=== PATIENT | male | born 1945 | race Caucasian/White ===

== ENCOUNTER 2021-09-15 18:36 | Observation (INO) | payer OTHER, MEDICARE, SELFPAY ==
[2021-09-15] VITALS (14 sets, daily range): BP systolic 167–200; BP diastolic 96–120; PULSE 87–103; RESP 16–22; TEMP 36.2–37.1; O2SAT 94–97; BMI 25.8; BMI 26.6
--- NOTE | 2021-09-15 18:47 | EKG12_ITS ---
Test Reason : HTN Blood Pressure : / mmHG Vent. Rate : 087 BPM Atrial Rate : 087 BPM P-R Int : 174 ms QRS Dur : 108 ms QT Int : 378 ms P-R-T Axes : 026 -37 015 degrees QTc Int : 454 ms Normal sinus rhythm Left axis deviation Abnormal ECG Confirmed by DAVEY CASTILLO, ROMIE ([id number]), acquisitions editor WILBER VALLADARES ([id number]) on 09/16/2021 2:29:33 PM Referred By: DANTE Confirmed By:ROMIE MARISCAL MD
--- NOTE | 2021-09-15 18:49 | EDS_ITS ---
HPI History of Present Illness Chief Complaint: Hypertension Detail of Chief Complaint: Problems with balance and coordination that started 1 hour prior to present Informant: patient and spouse/S.O. Onset/Context/Timing Onset: Hours (1 hour prior to presentation) Context: Sudden Onset Timing: Continuous Current Severity: Mild Maximum Severity: Mild Worsened by: Nothing Relieved by: Nothing Associated Symptoms Associated Symptoms: Problems with balance and fine coordination Narrative Narrative: Patient is a 76-year-old male who is a non-smoker but admits to 3 drinks a day. He has had intermittent headache over the past 3 days. He has had elevated blood pressure at home. reports blood pressure was 272/142. He presently does not have a headache. He denies double vision, blurred vision or loss of vision. He denies ringing his ears decreased hearing. He denies nausea or vomiting. Nuys trouble with speech or swallowing. He denies paresthesia, anesthesia or motor weakness. He does endorse problems with balance. Prior similar symptoms: No Recent Illness/Hospitalization: No PFSH PFSH Medical History (Updated 09/15/21 @ 19:[address] Perry Colindres MD) Diverticulitis Medical History no medical history no medical history Home Medications NK 09/15/21 [History Last Taken Unknown] Allergy/AdvReac Type Severity Reaction Status Date / Time No Known Allergies Allergy Verified 09/15/21 18:37 Social History (Updated 09/15/21 @ 18:[address] Perry Colindres MD) household members: spouse Smoking Status: Never smoker alcohol intake: current alcohol intake frequency: 3 or more drinks per day substance use type: does not use ROS ROS ED Constitutional Constitutional ED: Denies chills, fever(s), subjective, sweats or weight loss Eyes Eyes: Denies blurry vision, change in vision or diplopia ENT ENT ED: Denies ear pain, rhinorrhea or sore throat Cardiovascular Cardiovascular: Denies chest pain, orthopnea, palpitations or racing heartbeat Respiratory/Chest Respiratory/Chest: Denies cough, dyspnea, dyspnea on exertion, orthopnea or sputum Gastrointestinal Gastrointestinal: Denies abdominal pain, diarrhea, melena, nausea or vomiting Genitourinary Genitourinary ED: Denies dysuria, hematuria or urinary frequency Musculoskeletal Musculoskeletal: Denies arthralgias, back pain, myalgias or neck pain Integumentary Denies abscess, Abrasions or rash Neurologic Neurologic: Reports headache(s); Denies paresthesias or weakness Endocrine Endocrinology: Denies polydipsia, polyphagia or polyuria Hematologic/Lymphatic Hematologic/Lymphatic: Denies easy bleeding or easy bruising EXAM Physical Exam Const Vital Signs: 09/15/21 18:38 09/15/21 19:01 09/15/21 19:03 Temperature 97.2 F L Temperature Source Temporal Pulse Rate 103 H Respiratory Rate 16 Respiratory Effort Normal Respiratory Pattern Normal Blood Pressure 192/112 H Blood Pressure Mean 138 Pulse Ox 97 95 Oxygen Delivery Method Room Air Nasal Cannula 09/15/21 19:04 09/15/21 19:06 09/15/21 19:09 Temperature Temperature Source Pulse Rate 92 95 97 Respiratory Rate 20 H 20 H 20 H Respiratory Effort Respiratory Pattern Blood Pressure 183/100 H 200/114 H 200/114 H Blood Pressure Mean 127 142 142 Pulse Ox 95 97 97 Oxygen Delivery Method Room Air Room Air Room Air 09/15/21 19:14 09/15/21 19:21 09/15/21 19:22 Temperature Temperature Source Pulse Rate 92 89 89 Respiratory Rate 20 H 20 H 18 Respiratory Effort Respiratory Pattern Blood Pressure 193/96 H 167/99 H 189/105 H Blood Pressure Mean 128 121 133 Pulse Ox 95 96 96 Oxygen Delivery Method Room Air Room Air Room Air 09/15/21 19:30 Temperature 97.8 F Temperature Source Temporal Pulse Rate 88 Respiratory Rate 22 H Respiratory Effort Respiratory Pattern Blood Pressure 178/103 H Blood Pressure Mean 128 Pulse Ox 94 Oxygen Delivery Method Room Air Positive well nourished and well developed General Appearance ED: well developed and NAD; Negative for cyanotic, diaphoretic or pallor HEENT Reports TM's clear and moist mucous membranes HEENT Narrative: Uvula is midline. There is no angioedema. Ears are normal. Negative for trauma or tenderness Tympanic Membrane ED: Yes TM's clear Eyes PERRL and EOMs intact bilaterally Eyes Narrative: There is slight nystagmus with lateral gaze to the left. There is no APD. There is no evidence of papilledema. Difficult to assess cup-to-disc ratio. Patient does have evidence of AV nicking. General Eye ED: Negative for pale conjunctiva or scleral icterus Neck no lymphadenopathy, supple and no JVD Neck Narrative: There is no carotid bruit noted on the right or left side. Resp normal respiratory effort and clear to auscultation bilaterally Cardio regular rate, regular rhythm, S1 normal heart sound, S2 normal heart sound and no murmurs GI normal to inspection, nondistended, normoactive bowel sounds, non-tender and non-distended Palpation: soft Back/Spine no CVA tenderness Cervical Spine: Negative for cervical spine tenderness Thoracic Spine / Upper Back: Negative for thoracic spinal tenderness or paraspinal muscle tenderness Extremity normal to inspection General Extremety ED: Negative for edema or tenderness General Extremity: Negative for edema Neuro oriented x3, CN's II-XII intact bilaterally and no sensory deficits noted Neuro Narrative: There is no dysmetria. Romberg with eyes open and closes abnormal when they are close bilaterally. Gait observed and is broad-based. Tandem gait is abnormal with clumsiness and difficulty standing and needing assistance to prevent falling.There is no clonus or Babinski sign. NIH is 0. The eye askew test was negative. The hint test was negative. Sensorium / Orientation: alert Motor Exam: strength 5/5 throughout Psych mental status grossly normal Skin no rashes or lesions noted and no wounds General Skin Exam: Negative for jaundice or pallor MDM MDM MDM Narrative Medical decision making narrative: With broad-based gait difficulty with coordination and balance concern patient has sella barrel infarct. This may also represent hypertensive emergency in light of patient's reported blood pressure at home. Based on funduscopic exam patient's had untreated hypertension for some time. Stroke team was called. Patient has no positional findings. Need to evaluate for posterior stroke versus hypertensive emergency. With him having nystagmus 1 need to entertain possibility of hemorrhagic stroke as well. Dr. Kearns was the neurologist at [facility]. Spoke to him prior to his evaluation and raise concerns of high blood pressure versus possible posterior stroke. With NIH of 0 and pressure still elevated the risk benefit of TPA versus no TPA is greater if TPA is administered therefore recommendation is not to administer TPA. Patient and were in the room when we had this discussion and he understands. Goal is systolic blood pressure 1 70-1 80 and diastolic of 100 205. If CTA reveals no significant stenosis or thrombus plan is admit an MRI in the morning otherwise transfer to tertiary facility. I received a call from the radiologist regarding the CT angio and he informed there is no abnormality. Therefore hospitalist was paged for admission Lab Data Attestation: I reviewed the patient's lab results. Lab results narrative: CBC is unremarkable. Blood sugar is slightly elevated 110. Coags are normal. Labs: Laboratory Results - last 24 hr 09/15/21 09/15/21 09/15/21 18:50 18:50 18:50 WBC 6.2 RBC 4.73 Hgb 16.3 Hct 45.8 MCV 96.8 H MCH 34.5 H MCHC 35.6 RDW Std Deviation 42.5 RDW Coeff of Jose 11.9 Plt Count 205 MPV 10.0 Immature Gran % (Auto) 0.600 Neut % (Auto) 45.5 L Lymph % (Auto) 39.1 Drew % (Auto) 12.2 H Eos % (Auto) 2.1 Baso % (Auto) 0.5 Absolute Neuts (auto) 2.8 Absolute Lymphs (auto) 2.43 Nucleated RBC % 0 PT 13.0 INR 1.0 APTT 31.7 Sodium 138 Potassium 3.7 Chloride 104 Carbon Dioxide 27.0 Anion Gap 7 BUN 8 Creatinine 0.83 Estim Creat Clear Calc 80.62 Est GFR (MDRD) Af Amer 116 Est GFR (MDRD) Non-Af 96 BUN/Creatinine Ratio 9.6 L Glucose 106 Calcium 8.8 Troponin I High Sens 8 POC Glucose 09/15/21 19:04 WBC RBC Hgb Hct MCV MCH MCHC RDW Std Deviation RDW Coeff of Jose Plt Count MPV Immature Gran % (Auto) Neut % (Auto) Lymph % (Auto) Drew % (Auto) Eos % (Auto) Baso % (Auto) Absolute Neuts (auto) Absolute Lymphs (auto) Nucleated RBC % PT INR APTT Sodium Potassium Chloride Carbon Dioxide Anion Gap BUN Creatinine Estim Creat Clear Calc Est GFR (MDRD) Af Amer Est GFR (MDRD) Non-Af BUN/Creatinine Ratio Glucose Calcium Troponin I High Sens POC Glucose 110 H Radiography Diagnostic Testing: Clinical Impression(s) from Imaging Studies Brain CT 09/15/21 19:00 IMPRESSION: No acute intracranial abnormality. Chronic involutional and ischemic changes of the brain. Electronically Signed: Brian Stanton MD at 19:09 EST , ADDENDUM: 09/15/21 1917 IMPRESSION: No acute intracranial abnormality. Chronic involutional and ischemic changes of the brain. N.B. : The above Results were Read Back by Brian Stanton MD to Dr. Perry Colindres MD, and understanding confirmed on 09/15/2021 19:11:05 (ET). Electronically Signed: Brian Stanton MD at 19:09 EST , Head/Neck CTA 09/15/21 19:00 IMPRESSION: Normal CTA Head and neck with contrast. Electronically Signed: Gina Hunt MD at 19:21 EST Reading Location ID and State: [id number] / Tel , Service support , ADDENDUM: 09/15/21 193 IMPRESSION: Normal CTA Head and neck with contrast. N.B. : The above Results were Read Back by Gina Hunt MD to Dr. Perry Colindres MD, and understanding confirmed on 09/15/2021 19:26:13 (ET). Electronically Signed: Gina Hunt MD at 19:21 EST Reading Location ID and State: [id number] / Tel , Service support , Critical Care Time Critical Care Time: Yes Critical care time (excluding procedures): 30-74 minutes (31), Including time spent: (History, physical, documentation, discussion with family, stroke protoc ol and discussion with neurologist at [facility]), Discussing w/Patient &/or Family/Project Management It Specialist (Discussion with family regarding risk benefits of TPA versus no TPA.), Discussing w/Consultants (Per discussion with neurologist TPA was held since the risk of TPA is greater than the benefit. Patient understands this. Spoke with radiologist who read the unenhanced scan and a different radiologist who read the CTA of the head neck and both reported no abnormality. The first radiologist who r) and Arranging Admission or Transfer Discharge Plan Dx/Rx/DC Orders Clinical Impression: Abnormality of gait due to impairment of balance, Accelerated hypertension Disposition Disposition: Acute Care Hospital [facility]
--- NOTE | 2021-09-15 19:00 | CT_ITS ---
We are attempting to reach an attending provider to discuss findings. An addendum with communication details will be sent when the communication is complete. EXAMINATION : Head CT w/out contrast HISTORY : Neuro deficit, acute, stroke suspected COMPARISON : None. TECHNIQUE : Multiple contiguous axial images were obtained from the skull base to the vertex without intravenous contrast. A radiation dose optimization technique was used for this scan. FINDINGS : There is no evidence for acute intracranial hemorrhage, mass effect, or midline shift. There is no extra-axial fluid collection. There are periventricular white matter changes consistent with chronic microvascular ischemic disease. There is sulcal widening and ventricular enlargement consistent with cerebral atrophy. There is normal landry-white differentiation, without CT evidence of acute ischemia or infarct. The skull base and calvarium are unremarkable. The orbits are unremarkable. The paranasal sinuses are clear. The mastoid air cells are well-aerated. The soft tissues are unremarkable. CT/STROKE Brain/Head without Cont IMPRESSION: No acute intracranial abnormality. Chronic involutional and ischemic changes of the brain. Electronically Signed: Brian Stanton MD at 19:09 EST ,
--- NOTE | 2021-09-15 19:00 | CT_ITS ---
We are attempting to reach an attending provider to discuss findings. An addendum with communication details will be sent when the communication is complete. STUDY: CTA HEAD AND NECK WITH CONTRAST REASON FOR EXAM: Male, 76 years old. Neuro deficit, acute, stroke suspected RADIATION DOSAGE (If Supplied By Facility): CTDIvol = ( 19.87 ) mGy, DLP = ( 722.26 ) mGycm TECHNIQUE: CT angiography was performed with a multi-detector CT scanner. Data acquisition was obtained from the skull base through the vertex following intravenous administration of IV 100mL [id number]-[id number]. MIP images were reconstructed from the axial data set. Post-processing of the angiographic images was performed, with multiplanar reformation and 3D reconstruction. Individualized dose optimization techniques were used for this CT. COMPARISON: No relevant priors. FINDINGS: Normal bilateral petrous and cavernous carotid arteries. Normal anterior cerebral arteries. Hypoplastic or aplastic anterior communicating artery. Normal middle cerebral arteries. Normal M1 bifurcations. There is non-visualization of the right posterior communicating artery (PCOM). There is non-visualization of the left posterior communicating artery (PCOM). Normal bilateral vertebral arteries. Normal basilar artery with a normal basilar bifurcation. The visualized bilateral superior cerebellar (SCA) arteries are normal. Normal bilateral P1, P2 and visualized P3 segments of the posterior cerebral arteries. There is no demonstrated aneurysm of the [place] of [place]. AORTIC ARCH: Normal visualized aortic arch. Normal origins of the brachiocephalic, left common carotid, and left subclavian arteries. RIGHT CAROTID ARTERIES: Normal right common carotid artery (CCA). Normal right common carotid bulb. Normal origin of the right internal carotid (ICA) artery without stenosis. Normal visualized cervical portion of the right internal carotid artery. Normal origin of the right external carotid artery (ECA). LEFT CAROTID ARTERIES: Normal left common carotid artery (CCA). Normal left common carotid bulb. Normal origin of the left internal carotid (ICA) artery without stenosis. Normal visualized cervical portion of the left internal carotid artery. Normal origin of the left external carotid artery (ECA). VERTEBRAL ARTERIES: Normal bilateral vertebral arteries. CT/STROKE CTA Head AND Neck W/Con IMPRESSION: Normal CTA Head and neck with contrast. Electronically Signed: Gina Hunt MD at 19:21 EST Reading Location ID and State: [id number] / Tel , Service support ,
[2021-09-15 19:09] LABS: Absolute Lymphocyte Count 2.43 X10^3/uL (0.83-4.51); Absolute Neutrophil Count 2.8 X10^3/uL (2.0-7.7); Basophil# 0.03 X10^3/uL; Basophil% 0.5 % (0-1); Eosinophil# 0.13 X10^3/uL; Eosinophils% 2.1 % (0-5); Hematocrit 45.8 % (40-54); Hemoglobin 16.3 g/dL (13.0-16.5); Lymphocyte # 2.43 X10^3/ul (0.83-4.51); Lymphocyte % 39.1 % (19-41); Mean Corp Hgb Conc 35.6 g/dL (32-36); Mean Corpuscular Hgb 34.5 pg (27.0-32.0); Mean Corpuscular Volume 96.8 fL (80-94); Monocyte# 0.76 X10^3/uL; Monocyte% 12.2 % (0-10); NRBC Flagged by Analyzer 0 % (0-5); Neutrophil # 2.83 X10^3/uL (2.7-7.7); Neutrophil % 45.5 % (47-70); Platelet Count 205 K/mm3 (150-450); RBC Distribution Width CV 11.9 % (11.6-14.6); RBC Distribution Width SD 42.5 fl (35.1-43.9); Red Blood Count 4.73 M/mm3 (4.6-6.2); White Blood Count 6.2 K/mm3 (4.4-11.0)
--- NOTE | 2021-09-15 19:09 | ED.RN ---
1904- NEUROLOGIST COMES ON TELE-COMPUTER SPEAKS WITH DR. ESTEVEZ AND STARTS ASSESSMENT
[2021-09-15 19:11] LABS: Bedside Glucose 110 mg/dL (74-106)
[2021-09-15 19:18] LABS: Partial Thromboplast Time 31.7 Seconds (24.1-36.2)
--- NOTE | 2021-09-15 19:21 | CM.ED ---
SW Note Referral Source: Stroke Alert Referral Reason: Stroke Alert SW met with patient's . Patient was in imaging. SW met with and explained how the robot works and how patient will be linked in to [facility]. Patient's verbalized understanding. SW provided emotional support. SW remains available if additional needs arise. Plan: Emotional support provided Destiny NAVA
[2021-09-15 19:26] LABS: Anion Gap 7 (5-15); BUN 8 mg/dL (7-18); BUN/Creat Ratio 9.6 RATIO (10-20); Calcium,Total 8.8 mg/dL (8.5-10.1); Chloride 104 mmol/L (98-107); Creatinine, Serum 0.83 mg/dL (0.70-1.30); EST Glomerular Filtration Rate 96 mL/min (>60); Est Glom Filt Rate - Afr Amer 116 mL/min (>60); Estimated Creatinine Clearance 80.62 ml/min; Glucose 106 mg/dL (74-106); Potassium 3.7 mmol/L (3.5-5.1); Sodium Level 138 mmol/L (136-145); Troponin-I HS 8 pg/mL (3.0-78.0)
--- NOTE | 2021-09-15 19:27 | ED.RN ---
1919- NEUROLOGIST ENDS VISIT SPEAKS WITH DR. ESTEVEZ, STATES OF NOW WATCH BP. ADMIT. MRI TOMORROW
--- NOTE | 2021-09-15 19:32 | HP.PCM.HOS_ITS ---
HPI - General General Date of Admission: 09/15/21 Date of Service: 09/15/21 Chief Complaint: Elevated BP, headaches, gait disturbance. HPI Narrative The patient is a 76 y/o M w/ PMHx: EtOH Abuse (3-4 mixed drinks daily), Former tobacco use who reports taking no medications and not seeing a physician who presents to the [facility] ED on 09/15/21 with history of difficulty with his balance and coordination that started approximately 1 hour prior to ED arrival with reported history of approximately 3 days of ongoing headache (BL hinduism, throbbi ng, mild, rated 2-3/10 in severity, short in duration) at home with significantly elevated blood pressures with reporting blood pressure up to 272/142 although upon presentation denied any headache but given onset of neurological symptoms prompted ED evaluation. Patient denied any vision mantilla es, ringing in his ears, nausea, emesis, alteration with speech or swallowing or any focal specific deficits or paresthesias. Work-up in the ED included 97.2, heart rate 103, BP initially 192/112, respiratory rate 16, 97% on room air, most recent blood pressure 178/103, CBC with WC 6.2, hemoglobin 16.3, platelet 205 without marked shift, unremarkable coags, BMP unremarkable, troponin 8, CT brain with no acute intracranial abnormalities, chronic involutional and ischemic changes of the brain noted, CTA head and neck noted to be normal, EKG with SR without acute evidence of ischemia. ED physician given broad-based gait difficulty with coordination balance with hypertensive emergency requested stroke alert with [facility] neurologist who recommended against giving TPA given NIH is 0 with recommendation goal systolic blood pressure 170-180 and diastolic 100- 105. [facility] Medical History (Updated 09/15/21 @ 20:[address] Bee Carrera MD) Alcohol abuse Former tobacco use History of diverticulitis Medical History no medical history Home Medications NK 09/15/21 [History Last Taken Unknown] Allergy/AdvReac Type Severity Reaction Status Date / Time No Known Allergies Allergy Verified 09/15/21 18:37 Family History (Updated 09/15/21 @ 20:[address] Bee Carrera MD) Mother Cancer Potentially uterine CA. Father CVA (cerebral vascular accident) Surgical History (Updated 09/15/21 @ 20:[address] Bee Carrera MD) S/P tonsillectomy and adenoidectomy Social History (Updated 09/15/21 @ 20:[address] Bee Carrera MD) household members: spouse Smoking Status: Former smoker how long ago did patient quit smoking: Quit 1979, smoked ~ 1 ppd x 4 years while in the [employer]. alcohol intake: current alcohol intake frequency: 3 or more drinks per day details: Drinks 3-4 mixed drinks daily. substance use type: does not use ROS ROS Narrative Admission Review of Systems: CONSTITUTIONAL: No weight loss, fever, chills, + weakness or fatigue. HEENT: Eyes: No visual loss, blurred vision, double vision or yellow sclerae. Ears, Nose, Throat: No hearing loss, sneezing, congestion, runny nose or sore throat. SKIN: No rash or itching, lesions, wounds. CARDIOVASCULAR: No chest pain, chest pressure or chest discomfort, palpitations, edema, orthopnea, syncopal events. RESPIRATORY: No shortness of breath, cough or sputum, wheezing, hemoptysis. GASTROINTESTINAL: No anorexia, nausea, vomiting or diarrhea, abdominal pain, melena, BRBPR. GENITOURINARY: No dysuria, frequency, urgency or retention. NEUROLOGICAL: + Headaches, imbalance and gait disturbance, No dizziness, syncope, paralysis, ataxia, numbness or tingling in the extremities, focal we akness, change in bowel or bladder control, seizure. MUSCULOSKELETAL: No muscle, back pain, joint pain or stiffness. HEMATOLOGIC: No anemia, bleeding or bruising. LYMPHATICS: No enlarged nodes. No history of splenectomy. PSYCHIATRIC: No history of depression or anxiety. ENDOCRINOLOGIC: No reports of sweating, cold or heat intolerance. No polyuria or polydipsia. ALLERGIES: No history of asthma, hives, eczema or rhinitis. Vital Signs Vital Signs Vital Signs: 09/15/21 18:38 09/15/21 19:01 09/15/21 19:03 Temperature 97.2 F L Temperature Source Temporal Pulse Rate 103 H Respiratory Rate 16 Respiratory Effort Normal Respiratory Pattern Normal Blood Pressure 192/112 H Blood Pressure Mean 138 Pulse Ox 97 95 Oxygen Delivery Method Room Air Nasal Cannula 09/15/21 19:04 09/15/21 19:06 09/15/21 19:09 Temperature Temperature Source Pulse Rate 92 95 97 Respiratory Rate 20 H 20 H 20 H Respiratory Effort Respiratory Pattern Blood Pressure 183/100 H 200/114 H 200/114 H Blood Pressure Mean 127 142 142 Pulse Ox 95 97 97 Oxygen Delivery Method Room Air Room Air Room Air 09/15/21 19:14 09/15/21 19:21 09/15/21 19:22 Temperature Temperature Source Pulse Rate 92 89 89 Respiratory Rate 20 H 20 H 18 Respiratory Effort Respiratory Pattern Blood Pressure 193/96 H 167/99 H 189/105 H Blood Pressure Mean 128 121 133 Pulse Ox 95 96 96 Oxygen Delivery Method Room Air Room Air Room Air 09/15/21 19:30 Temperature 97.8 F Temperature Source Temporal Pulse Rate 88 Respiratory Rate 22 H Respiratory Effort Respiratory Pattern Blood Pressure 178/103 H Blood Pressure Mean 128 Pulse Ox 94 Oxygen Delivery Method Room Air Weight Weight: 180 lb Body Mass Index (BMI) 25.8 Physical Exam Narrative Physical Examination: General: Awake, alert, oriented x 3 and cooperative, seated upright in the ED bed in no apparent distress. Skin: Normal color, normal turgor, no icterus, no cyanosis. HEENT: AT/NC, EOMI, PERRLA, MMM, no carotid bruits or JVD noted. Lungs: Mildly diminished, greater bases, appropriate effort, no rales, ronchi or wheezing. Heart: Currently regular rate and rhythm; no gallop, rub audible. Abdomen: Soft, NTTP, ND, mildly distant hyperactive BS, no HSM. Extremities: No cyanosis, clubbing, or edema. Neurological: Patient awake, alert, oriented as noted, cognitive function appears baseline intact; pupils equally reactive to light and accommodation, cranial nerves II-XII grossly normal, moving all 4 extremities, no focal deficits, strength preserved, [id number]-[id number] and htni-hi-epvb appropriate, sensation intact, negative Babinski, initial significant broad-based gait and some difficulty walking in the ED however this improved with blood pressure improvement. Psychiatric: Affect appears mildly irritable at having to stay but otherwise normal, no acute evidence of depressive or anxiety feelings. Results Lab / Micro Data Result Diagrams: 09/15/21 18:50 09/15/21 18:50 Labs: Laboratory Results - last 24 hr 09/15/21 18:50: WBC 6.2, RBC 4.73, Hgb 16.3, Hct 45.8, MCV 96.8 H, MCH 34.5 H, MCHC 35.6, RDW Std Deviation 42.5, RDW Coeff of Jose 11.9, Plt Count 205, MPV 10.0, Immature Gran % (Auto) 0.600, Neut % (Auto) 45.5 L, Lymph % (Auto) 39.1, Wilson % (Auto) 12.2 H, Eos % (Auto) 2.1, Baso % (Auto) 0.5, Absolute Neuts (auto) 2.8, Absolute Lymphs (auto) 2.43, Nucleated RBC % 0 09/15/21 18:50: PT 13.0, INR 1.0, APTT 31.7 09/15/21 18:50: Sodium 138, Potassium 3.7, Chloride 104, Carbon Dioxide 27.0, Anion Gap 7, BUN 8, Creatinine 0.83, Estim Creat Clear Calc 80.62, Est GFR (MDRD) Af Amer 116, Est GFR (MDRD) Non-Af 96, BUN/Creatinine Ratio 9.6 L, Glucose 106, Calcium 8.8, Troponin I High Sens 8 09/15/21 19:04: POC Glucose 110 H Radiology Impression Brain CT 09/15/21 19:00 IMPRESSION: No acute intracranial abnormality. Chronic involutional and ischemic changes of the brain. Electronically Signed: Brian Stanton MD at 19:09 EST , ADDENDUM: 09/15/21 191 IMPRESSION: No acute intracranial abnormality. Chronic involutional and ischemic changes of the brain. N.B. : The above Results were Read Back by Brian Stanton MD to Dr. Perry Colindres MD, and understanding confirmed on 09/15/2021 19:11:05 (ET). Electronically Signed: Brian Stanton MD at 19:09 EST , Head/Neck CTA 09/15/21 19:00 IMPRESSION: Normal CTA Head and neck with contrast. Electronically Signed: Gina Hunt MD at 19:21 EST Reading Location ID and State: [id number] / Tel , Service support , Assessment & Plan Assessment/Plan (1) Abnormality of gait due to impairment of balance: (2) Accelerated hypertension: PLAN: The patient is a 76 y/o M w/ PMHx: EtOH Abuse (3-4 mixed drinks nydia y), Former tobacco use who reports taking no medications and not seeing a physician who presents to the [facility] ED on 09/15/21 with history of difficulty with his balance and coordination that started approximately 1 hour prior to ED arrival with reported history of approximately 3 days of ongoing headache at home with significantly elevated blood pressures. #1. Broad-based gait, imbalance concerning for possible Acute CVA complicated by or potentially primarily secondary to #2: Will admit to PCU, will obtain MRI Brain, ECHO, PT/OT/Speech/Nutrition evaluation per protocol. Will consult Neurology for evaluation following work-up and studies as noted. Will allow permissive HTN w/ treatment as noted, maintain on asa, add high dose statin w/ AM FLP, fall precautions. Mag, TSH, HgbA1c, FLP pending. #2. Hypertensive emergency with no prior history of hypertension: BP notably elevated in the ED, improved while in the ED, telestroke call recommendation goal systolic blood pressure 170-180 and diastolic 100-105 which will be abided with PRN agents and once appropriate transition to oral regimen. #3. EtOH Abuse: Patient notes routine consumption of greater than 3-4 drinks per day. Will maintain on CIWA protocol, MVI, thiamine and folic acid. If necessary may add treatment protocol. #4. Former tobacco use: Encourage continued tobacco cessation. #5. DVT prophylaxis: SCDs, Lovenox. Charges/Coding Visit Charges OBSV E&M: 67505 Initial observation care L3
--- NOTE | 2021-09-15 19:47 | RAD_ITS ---
INDICATION: Neuro deficit, acute, stroke suspected -- Broad-based gait difficulty with tandem gait EXAMINATION/TECHNIQUE: X-RAY - XR Chest 1 View COMPARISON: None. FINDINGS: The lungs are clear. The cardiomediastinal silhouette is unremarkable. No pleural effusion or pneumothorax. Degenerative changes of the thoracic spine. RAD/Chest 1 View IMPRESSION: No acute radiographic abnormalities. Electronically Signed: Brian Stanton MD at 21:35 EST ,
--- NOTE | 2021-09-15 20:13 | CM.ED ---
RN CM Assessment Introduced role of RN CM to patient and Ivon at bedside. Patient is alert, oriented and able to participate in RN CM Assessment. Care providers, pharmacy, and demographics verified. Admit Dx: TIA/CVA, HTN emergency Re-Admit: No Barriers/Issues: None PCP: Eleanor Poole Specialists: None Preferred Pharmacy: [facility] Insurance: MMO, [facility] A/B Rx Benefit: Yes LNOK: Ivon Hadley LW/HPOA: None, AD information with delinquency prevention social worker rack card provided. Informed can complete as inpatient or outpatient. Living Arrangements: Lives with in a H, 2 steps to enter home ADL?s: Independent with ambulation and ADLs Transportation: Both patient and drive. will transport upon DC. DME: None HHC: None SNF: None Goal: Home and denies any needs, issues or concerns with going home. DC PLAN: Home and f/u mobility- if PT recommended- would be outpatient as patient still works [employer] and is not home bound. Nidia Del Roasrio RNCM
--- NOTE | 2021-09-15 20:46 | ECHOCS_ITS ---
Reason For Study: CVA Procedure This was a 2D Doppler, Color Flow transthoracic echocardiogram. Exam performed portable in patient room. Left Ventricle Normal LV size. The estimated ejection fraction is 55-60 %. Right Ventricle Normal right ventricle. Atria Normal left atrium. Normal right atrium. Mitral Valve The mitral valve is structurally normal. No prolapse or stenosis seen. No mitral valve insufficiency. Tricuspid Valve Normal tricuspid valve. No tricuspid valve insufficiency. Aortic Valve Normal aortic valve. Trivial aortic valve insufficiency. Pulmonic Valve The pulmonic valve is not well visualized. Great Vessels Normal aortic root. Pericardium/Pleural No pericardial effusion. Medication Performed a rapid injection of agitated mix of 9 cc saline and 1cc air to assess for atrial septal defect. Diluted definity 3ml given slow IV push to enhance endocardial definition. MMode/2D Measurements & Calculations LVIDd: 5.1 cm IVSd: 1.2 cm Ao root diam: 3.0 cm LVIDs: 2.8 cm LVPWd: 1.2 cm RVDd: 3.8 cm FS: 44.0 % LAV(MOD-bp): 42.9 ml LVAd ap4: 34.8 cm2 SV(MOD-sp4): 74.9 ml LAV(MOD-bp) Indexed: 21.2 ml/m2 LVLd ap4: 8.6 cm LAV(MOD-sp2): 44.9 ml EDV(MOD-sp4): 113.4 ml LAV(MOD-sp4): 38.3 ml EDV(sp4-el): 119.4 ml LVAs ap4: 17.9 cm2 LVLs ap4: 6.9 cm ESV(MOD-sp4): 38.5 ml ESV(sp4-el): 39.5 ml EF(MOD-sp4): 66.1 % EF(sp4-el): 66.9 % SV(sp4-el): 79.9 ml LA A4 area: 17.0 cm2 LA dimension(2D): 4.4 cm RA A4 area: 12.9 cm2 Doppler Measurements & Calculations MV E max leon: 80.4 cm/sec Lat Peak E' Leon: 6.8 cm/sec Med Peak E' Leon: 6.8 cm/sec MV A max leon: 110.6 cm/sec E/E' lat: 11.9 E/E' med: 11.8 MV E/A: 0.73 Ao V2 max: 153.4 cm/sec LV V1 max: 131.0 cm/sec PA V2 max: 103.4 cm/sec Ao max P.4 mmHg LV V1 max P.9 mmHg Ao V2 mean: 107.5 cm/sec Ao mean P.1 mmHg Ao V2 VTI: 29.5 cm ECHO/Echo Complete W/ Contrast Interpretation Summary The estimated ejection fraction is 55-60 %. Normal LV systolic function Grade #1 Diastolic duysfunction Ordering Physician: Bee Carrera Referring Physician: Eleanor Poole Performed By: Dalila Palafox, YANDEL, RVT
[2021-09-15 20:48] LABS: Magnesium 2.4 mg/dL (1.6-2.6); Phosphorus 2.8 mg/dL (2.5-4.9)
[2021-09-15] MEDS: 0.9% Normal Saline 1,000 ML 100 ML IV (21:13)
[2021-09-15] MEDS: Famotidine 20 MG Tablet PO (21:58)
[2021-09-15] MEDS: Aspirin 325 MG Tablet PO (21:58)
[2021-09-15] MEDS: Atorvastatin Calcium 80 MG Tablet PO (21:58)
[2021-09-16] VITALS (8 sets, daily range): BP systolic 154–177; BP diastolic 85–98; PULSE 70–82; RESP 16–18; TEMP 36.6–37.3; O2SAT 93–96; BMI 26.6
[2021-09-16 05:11] LABS: Absolute Lymphocyte Count 1.66 X10^3/uL (0.83-4.51); Absolute Neutrophil Count 2.5 X10^3/uL (2.0-7.7); Basophil# 0.04 X10^3/uL; Basophil% 0.8 % (0-1); Eosinophil# 0.11 X10^3/uL; Eosinophils% 2.1 % (0-5); Hematocrit 43.4 % (40-54); Hemoglobin 14.8 g/dL (13.0-16.5); Lymphocyte # 1.66 X10^3/ul (0.83-4.51); Lymphocyte % 32.3 % (19-41); Mean Corp Hgb Conc 34.1 g/dL (32-36); Mean Corpuscular Hgb 33.5 pg (27.0-32.0); Mean Corpuscular Volume 98.2 fL (80-94); Mean Platelet Vol. 10.3 fl (6.2-12.0); Monocyte# 0.83 X10^3/uL; Monocyte% 16.1 % (0-10); NRBC Flagged by Analyzer 0 % (0-5); Neutrophil # 2.47 X10^3/uL (2.7-7.7); Neutrophil % 48.1 % (47-70); Platelet Count 191 K/mm3 (150-450); RBC Distribution Width CV 12.1 % (11.6-14.6); RBC Distribution Width SD 43.8 fl (35.1-43.9); Red Blood Count 4.42 M/mm3 (4.6-6.2); White Blood Count 5.1 K/mm3 (4.4-11.0)
[2021-09-16 05:49] LABS: ALB/GLOB Ratio 0.9 RATIO (0.9-2.4); AST(SGOT) 52 U/L (15-37); Alanine Aminotransfer ALT/SGPT 66 U/L (16-61); Albumin, Serum 3.2 g/dL (3.2-5.0); Alkaline Phosphatase 80 U/L (45-117); Anion Gap 5 (5-15); BUN 10 mg/dL (7-18); BUN/Creat Ratio 13.5 RATIO (10-20); Calcium,Total 7.8 mg/dL (8.5-10.1); Chloride 108 mmol/L (98-107); Cholesterol 129 mg/dL (200); Creatinine, Serum 0.74 mg/dL (0.70-1.30); EST Glomerular Filtration Rate 110 mL/min (>60); Est Glom Filt Rate - Afr Amer 133 mL/min (>60); Estimated Creatinine Clearance 66.92 ml/min; Globulin 3.5 g/dL (2.2-4.2); Glucose 85 mg/dL (74-106); High Density Lipoprotein 40 mg/dL; Potassium 3.9 mmol/L (3.5-5.1); Protein, Total 6.7 g/dL (6.4-8.2); Sodium Level 138 mmol/L (136-145); Thyroid Stim Hormone (TSH) 3.25 uIU/mL (0.358-3.74); Triglycerides 48 mg/dL; Very Low Density Lipoprotein 10 mg/dL (5-40)
[2021-09-16] MEDS: 0.9% Normal Saline 1,000 ML 100 ML IV (06:38)
[2021-09-16 07:03] LABS: Hemoglobin A1c 4.8 % (3.8-5.6)
[2021-09-16] MEDS: Aspirin 81 MG TAB.CHEW PO (08:15)
[2021-09-16] MEDS: Thiamine Hydrochloride 100 MG Tablet PO (08:15)
[2021-09-16] MEDS: Famotidine 20 MG Tablet PO (08:15)
[2021-09-16] MEDS: Folic Acid 1 MG Tablet PO (08:15)
[2021-09-16] MEDS: Enoxaparin 40 MG/0.4 ML Syringe SC (08:15)
--- NOTE | 2021-09-16 09:57 | NURSING ---
Patient left unit to MRI
--- NOTE | 2021-09-16 10:08 | MRI_ITS ---
EXAM: MR HEAD WITHOUT INTRAVENOUS CONTRAST : 1945 CLINICAL INDICATION: CVA TECHNIQUE: Multiplanar and multisequence MR images of the brain were obtained without intravenous contrast. This report was created using C[employer]vo report generation technology. COMPARISON: CT brain September 15, 2021 FINDINGS: BRAIN AND EXTRA-AXIAL SPACES: Multiple foci of increased T2 signal intensity within the cerebral white matter consistent with gliosis/chronic microvascular disease. No intra- or extra-axial hemorrhage. No evidence of acute infarct. No intracranial mass or mass effect. There is preservation of the niño/white matter interface. Posterior fossa structures are unremarkable. Ventricles are appropriate for age. No hydrocephalus. Basal cisterns are patent. SELLA: Unremarkable. Normal sella turcica, pituitary gland, infundibular stalk, optic chiasm and hypothalamus. AUDITORY SYSTEM: Unremarkable. The internal auditory canals are patent. BONES/JOINTS: Unremarkable. No discrete lytic or blastic abnormalities. SINUSES: Unremarkable as visualized. Clear. MASTOID AIR CELLS: Unremarkable as visualized. Clear. ORBITS: Unremarkable as visualized. Both globes, extraocular muscles, optic nerves and retrobulbar fat appear unremarkable. VASCULATURE: Unremarkable as visualized. Normal flow voids in the major intracranial circulation. MRI/Brain without Contrast IMPRESSION: 1. No evidence of acute CVA. 2. Chronic microvascular changes. at 1122 Reported and signed by: Vimal Michael MD Electronically Signed: Vimal Michael MD at 11:21 EST ,
--- NOTE | 2021-09-16 11:40 | PCM.DC ---
Discharge Instructions Diet Discharge Diet: Low fat / Low cholesterol and 2000 mg Sodium Diet Activity Discharge Activity: Return to Normal Activity Dressing / Incision Call your doctor if you observe: Shortness of breath, Dizziness and Chest pain Follow Up Care Test Results: Test results from this visit will be discussed in further detail at your follow-up appointment, if applicable. Discharge Plan Admission Admit Date/Time: 09/15/21 19:39 Primary Reason for Your Visit: Hypertensive Emergency Attending Provider: Kelsi Ziegler Primary Care Provider: Eleanor Poole Instructions Additional Instructions / Restrictions: As discussed, please check your blood pressure twice daily, morning and night and document numbers to report to PCP at follow up. If your systolic number (top number) is 180 or greater, notify PCP immediately. Discharge Orders/Prescriptions Prescriptions: New amlodipine 5 mg Tablet 5 mg PO DAILY 30 Days Qty: 30 RF: 0 Referrals / Follow Up: Eleanor Poole DO [Primary Care Provider] - Within 1 Week Disposition Disposition (needs filled in before D/C Order can be placed): Home, Self Care
--- NOTE | 2021-09-16 11:45 | PCM.DC.SUM ---
Documented by User: Nolvia Mcclellan NP, STUNT DOUBLE-C 09/16/21 11:51 Providers Date of Admission: 09/15/21 Date of Discharge: 09/16/21 Primary Care Physician: Dr. Eleanor Poole DO Reason For Visit: TIA/CVA, HTN EMERGENCY Diagnosis Discharge Diagnosis (1) Abnormality of gait due to impairment of balance: Status: Acute Code(s): R26.89 - Other abnormalities of gait and mobility (2) Accelerated hypertension: Status: Acute Code(s): I10 - Essential (primary) hypertension Medications at Discharge Home Medications amlodipine 10 mg PO DAILY #30 tab 09/16/21 Hospital Course Operations None Procedures 2-D Echocardiogram Summary of Care Provided Hospital Course: Patient is a 76-year-old male admitted 09/15/2021 due to gait imbalance. 1. Hypertensive emergency-no known prior history of hypertension. MRI negative for stroke. Initiated on amlodipine 5 mg daily which will likely need titrated as outpatient. Discussed with patient monitoring blood pressure twice daily and documenting findings to follow-up with PCP within 1 week. Discussed notifying PCP immediately if systolic pressure is 180 or greater. Echocardiogram pending and will be reviewed prior to discharge. 2. TIA/CVA ruled out-gait imbalance likely secondary to #1. MRI of brain negative. Head and neck CTA normal. Lipid profile within normal limits. No indication for aspirin/statin at discharge. 3. Mildly elevated liver enzymes-likely secondary to alcohol use, recommend outpatient follow-up. 4. Alcohol dependence-encouraged reduction/cessation. 5. Former tobacco use-encouraged continued cessation. Patient seen and examined prior to discharge. Physical assessment as noted below. Patient is stable for discharge with follow up recommendations as noted above. This patient was seen by NANCY Jones under the supervision of Dr. Ziegler. Physical Exam Const alert, oriented x3 and no apparent distress Orientation / Consciousness: awake, oriented to person, oriented to place and oriented to time HEENT normocephalic and moist oral mucous membranes Eyes PERRL, EOMs intact bilaterally and conjunctivae normal Neck no lymphadenopathy Resp normal respiratory effort and clear to auscultation bilaterally Cardio regular rate, regular rhythm and no murmurs Peripheral Pulses: pulses 2+ throughout GI normal to inspection, nondistended, normoactive bowel sounds, non-tender and non-distended Extremity normal to inspection Skin no rashes or lesions noted Lesions: no lesions Rashes: no rashes Trauma: no lacerations or abrasions Neuro CN's II-XII intact bilaterally, no focal motor deficits, no sensory deficits noted and deep tendon reflexes 2+ bilaterally Psych mental status grossly normal and affect normal Weight / BMI Weight Weight: 186 lb 8.177 oz Body Mass Index (BMI) 26.6 ABG / Lab / Microbiology Data Result Diagrams: 09/16/21 04:17 09/16/21 04:17 Laboratory: Laboratory Results - last 24 hr 09/15/21 18:50: WBC 6.2, RBC 4.73, Hgb 16.3, Hct 45.8, MCV 96.8 H, MCH 34.5 H, MCHC 35.6, RDW Std Deviation 42.5, RDW Coeff of Jose 11.9, Plt Count 205, MPV 10.0, Immature Gran % (Auto) 0.600, Neut % (Auto) 45.5 L, Lymph % (Auto) 39.1, [place] % (Auto) 12.2 H, Eos % (Auto) 2.1, Baso % (Auto) 0.5, Absolute Neuts (auto) 2.8, Absolute Lymphs (auto) 2.43, Nucleated RBC % 0 09/15/21 18:50: PT 13.0, INR 1.0, APTT 31.7 09/15/21 18:50: Sodium 138, Potassium 3.7, Chloride 104, Carbon Dioxide 27.0, Anion Gap 7, BUN 8, Creatinine 0.83, Estim Creat Clear Calc 80.62, Est GFR (MDRD) Af Amer 116, Est GFR (MDRD) Non-Af 96, BUN/Creatinine Ratio 9.6 L, Glucose 106, Calcium 8.8, Troponin I High Sens 8 09/15/21 18:50: Phosphorus 2.8, Magnesium 2.4 09/15/21 19:04: POC Glucose 110 H 09/16/21 04:17: WBC 5.1, RBC 4.42 L, Hgb 14.8, Hct 43.4, MCV 98.2 H, MCH 33.5 H, MCHC 34.1, RDW Std Deviation 43.8, RDW Coeff of Jose 12.1, Plt Count 191, MPV 10.3, Immature Gran % (Auto) 0.600, Neut % (Auto) 48.1, Lymph % (Auto) 32.3, [place] % (Auto) 16.1 H, Eos % (Auto) 2.1, Baso % (Auto) 0.8, Absolute Neuts (auto) 2.5, Absolute Lymphs (auto) 1.66, Nucleated RBC % 0 09/16/21 04:17: Sodium 138, Potassium 3.9, Chloride 108 H, Carbon Dioxide 25.0, Anion Gap 5, BUN 10, Creatinine 0.74, Estim Creat Clear Calc 66.92, Est GFR (MDRD) Af Amer 133, Est GFR (MDRD) Non-Af 110, BUN/Creatinine Ratio 13.5, Glucose 85, Calcium 7.8 L, Total Bilirubin 1.40 H, AST 52 H, ALT 66 H, Alkaline Phosphatase 80, Total Protein 6.7, Albumin 3.2, Globulin 3.5, Albumin/Globulin Ratio 0.9, Triglycerides 48, Cholesterol 129, LDL Cholesterol 79, VLDL Cholesterol 10, HDL Cholesterol 40, TSH 3.25 09/16/21 04:17: Hemoglobin A1c 4.8 Radiography Diagnostic Testing: Radiology Impression Brain CT 09/15/21 19:00 IMPRESSION: No acute intracranial abnormality. Chronic involutional and ischemic changes of the brain. Electronically Signed: Brian Stanton MD at 19:09 EST , ADDENDUM: 09/15/211916 IMPRESSION: No acute intracranial abnormality. Chronic involutional and ischemic changes of the brain. N.B. : The above Results were Read Back by Brian Stanton MD to Dr. Perry Colindres MD, and understanding confirmed on 09/15/2021 19:11:05 (ET). Electronically Signed: Brian Stanton MD at 19:09 EST , Head/Neck CTA 09/15/21 19:00 IMPRESSION: Normal CTA Head and neck with contrast. Electronically Signed: Gina Hunt MD at 19:21 EST Reading Location ID and State: [id number] / Tel , Service support , ADDENDUM: 09/15/211932 IMPRESSION: Normal CTA Head and neck with contrast. N.B. : The above Results were Read Back by Gina Hunt MD to Dr. Perry Colindres MD, and understanding confirmed on 09/15/2021 19:26:13 (ET). Electronically Signed: Gina Hunt MD at 19:21 EST Reading Location ID and State: [id number] / Tel , Service support , Chest X-Ray 09/15/21 19:47 IMPRESSION: No acute radiographic abnormalities. Electronically Signed: Brian Stanton MD at 21:35 EST , Brain MRI 09/16/21 10:08 IMPRESSION: 1. No evidence of acute CVA. 2. Chronic microvascular changes. at 1122 Reported and signed by: Vimal Michael MD Electronically Signed: Vimal Michael MD at 11:21 EST , D/C Instructions Discharge Diet: Low fat / Low cholesterol and 2000 mg Sodium Diet Call your doctor if you observe: Shortness of breath, Dizziness and Chest pain Meaningful Use Info Meaningful Use Diagnoses (Choose all that apply): None applicable Discharge Plan Admission Admit Date/Time: 09/15/21 19:39 Primary Reason for Your Visit: Hypertensive Emergency Attending Provider: Kelsi Ziegler Primary Care Provider: Eleanor Poole Instructions Patient Instructions: What Is High Blood Pressure?, Taking Blood Pressure Medications Additional Instructions / Restrictions: As discussed, please check your blood pressure twice daily, morning and night and document numbers to report to PCP at follow up. If your systolic number (top number) is 180 or greater, notify PCP immediately. Discharge Orders/Prescriptions Prescriptions: New amlodipine 10 mg tablet 10 mg PO DAILY Qty: 30 RF: 0 Referrals / Follow Up: Eleanor Poole DO [Primary Care Provider] - Within 1 Week Disposition Disposition (needs filled in before D/C Order can be placed): Home, Self Care Documented by User: Dr. Kelsi Ziegler DO 09/16/21 15:47 Providers Date of Admission: 09/15/21 Reason For Visit: TIA/CVA, HTN EMERGENCY Medications at Discharge Home Medications amlodipine 10 mg PO DAILY #30 tab 09/16/21 Hospital Course Operations None Procedures 2-D Echocardiogram and - (MRI brain) Summary of Care Provided Minutes Spent on Discharge: 37 Hospital Course: Mr Butcher is a 76-year-old white male who presented to the emergency department at [facility] on 09/15/2021 with a chief complaint of being off balance and having some decreased coordination that started approximately 1 hour prior to arrival to the emergency department. He evidently had been suffering from approximately 3 days of an ongoing headache that he reported was bitemporal and throbbing in nature with a severity of 2-3 out of 10. He had evidently been having some markedly elevated blood pressures at home with pressures upwards of 272/142 on their home monitor. On presentation he denied any present headache but with the onset of his neurological symptoms he came to the emergency department. In the ED his vital signs showed he was afebrile, he had a heart rate of 103 initial blood pressure of 192/112, respiratory rate of 16 and a sat of 97% on room air. The most recent blood pressure upon our evaluation was 178/103. His CBC was overall unimpressive, his BMP was unimpressive. A CT of his brain was performed given the findings and showed no acute intracranial abnormalities but did demonstrate chronic involutional and ischemic changes of the brain. A CTA of his head and neck were noted to be normal. His EKG showed normal sinus rhythm without any evidence of acute ischemia. A stroke alert was called in the emergency department and the case was discussed with the [facility] neurologist who recommended against giving TPA with an NIH being 0. They initially desired his blood pressure to be 170-180 systolic and diastolic 100-1 05 given concern for stroke versus TIA on presentation until we could rule this out with MRI. He was admitted to the PCU and further work-up was completed. An MRI was done and showed no evidence of acute stroke and only demonstrated chronic microvascular changes. With MRI being negative for any acute stroke we did initiate antihypertensive therapy with amlodipine 5 mg. We reevaluated his blood pressure 2 hours after the 5 mg amlodipine dose was given and his blood pressure remained elevated with a 167 systolic therefore we increased his discharge dose to 10 mg daily and recommended outpatient follow-up with his primary care physician for further evaluation and blood pressure check within the next week. An echocardiogram was performed as well and was pending on discharge however this has no bearing on him being discharged and therefore he was discharged prior to this being read. We will follow up on these results. He was discharged home having his neurological symptoms completely resolved and being able to ambulate independently without any off-balance and functionally at baseline. We do suspect that his symptoms are most likely related to his markedly elevated blood pressure and encourage continued follow-up to obtain a systolic blood pressure of less than 130/80 at goal. We did obtain lipids during his hospitalization and they were found to be at goal without any intervention. A prescription was sent to his pharmacy for amlodipine 10 mg daily and again he was encouraged to follow-up with his PCP within the next week. Discharge diagnoses: Hypertensive emergency Alcohol abuse History of tobacco abuse Physical Exam Const alert, oriented x3, no apparent distress, average body habitus, no limitations, healthy appearing and well nourished General Appearance: cooperative, comfortable, well kempt and well developed Orientation / Consciousness: awake HEENT normocephalic, head/scalp atraumatic, hearing grossly normal bilaterally and moist oral mucous membranes HEENT Narrative: Mallampati is 2, no thrush, dentition is fair for age Eyes PERRL, EOMs intact bilaterally and conjunctivae normal Eyes Narrative: No scleral icterus Neck no lymphadenopathy, supple, no JVD and no carotid bruits Neck Narrative: Trachea is midline, no thyroid enlargement Resp normal respiratory effort, no retractions, no use of accessory muscles and clear to auscultation bilaterally Auscultation: Negative for crackles, rales, rhonchi or wheezes Cardio regular rate, regular rhythm, S1 normal heart sound, S2 normal heart sound, no murmurs, no rub, no gallops, no clicks and no JVD GI normal to inspection, nondistended, normoactive bowel sounds, soft to palpation, non-tender and non-distended Extremity normal to inspection, full ROM and no clubbing, cyanosis or edema Skin no rashes or lesions noted, no wounds, skin turgor normal and no jaundice Neuro oriented x3, CN's II-XII intact bilaterally, moves all extremities, no focal motor deficits and no sensory deficits noted Neuro Narrative: Reflexes are 2+ Sensorium / Orientation: awake and alert Speech: speech normal Motor Exam: strength 5/5 throughout Psych affect normal Psych Narrative: Very pleasant ABG / Lab / Microbiology Data Result Diagrams: 09/16/21 04:17 09/16/21 04:17 Discharge Plan Admission Admit Date/Time: 09/15/21 19:39 Primary Reason for Your Visit: Hypertensive Emergency Attending Provider: Kelsi Ziegler Primary Care Provider: Eleanor Poole Instructions Patient Instructions: What Is High Blood Pressure?, Taking Blood Pressure Medications Additional Instructions / Restrictions: As discussed, please check your blood pressure twice daily, morning and night and document numbers to report to PCP at follow up. If your systolic number (top number) is 180 or greater, notify PCP immediately. Discharge Orders/Prescriptions Prescriptions: New amlodipine 10 mg tablet 10 mg PO DAILY Qty: 30 RF: 0 Referrals / Follow Up: Eleanor Poole DO [Primary Care Provider] - Within 1 Week Disposition Disposition (needs filled in before D/C Order can be placed): Home, Self Care Charges/Coding Visit Charges Inpatient E&M: 87834 Disch Hosp
[2021-09-16] MEDS: amLODIPine 5 MG Tablet PO ×2 (11:50→13:02)
--- NOTE | 2021-09-16 13:03 | CASEMGMT ---
This RN CM to room and pt states no concerns with going home at time of discharge. Pt/ voice no need for any further resources. SStaten RN CM
== END 2021-09-16 11:41 | disposition home or self-care (01) ==
LOC: ED 19:44 → PCU 19:53
PROVIDERS: Admitting Provider Family Medicine; Emergency Provider Emergency Medicine; PCP Internal Medicine; Visit Provider Internal Medicine
DX: I16.1 Hypertensive emergency (principal); F10.20 Alcohol dependence, uncomplicated; R26.9 Unspecified abnormalities of gait and mobility; Z87.891 Personal history of nicotine dependence; I10 Essential (primary) hypertension; R29.700 NIHSS score 0; R74.8 Abnormal levels of other serum enzymes; I35.1 Nonrheumatic aortic (valve) insufficiency; R94.31 Abnormal electrocardiogram [ECG] [EKG]
CPT/HCPCS: 36415; 70450; 70496; 70498; 70551; 71045; 80048; 80053; 80061; 82962; 83036; 83735; 84100; 84443; 84484; 85025; 85610; 85730; 92523; 93005; 93306; 96360; 96361; 96372; 97802; 99218; 99251; 99285; J7030; Q9957; Q9967; A4216; C8929; G0378; G0463

== ENCOUNTER → 2024-01-28 | Outpatient (CLI) | payer OTHER, MEDICARE, SELFPAY ==
--- NOTE | 2024-01-28 08:31 | VDLE_ITS ---
Reason For Study: Edema RIGHT LEFT GSV is normal. GSV is normal. CFV is compressible, spontaneous, phasic, CFV is compressible, spontaneous, phasic, competent and demonstrates normal competent, and demonstrates normal augmentation. augmentation. FV is compressible, spontaneous, phasic, FV is compressible, spontaneous, phasic, competent and demonstrates normal competent and demonstrates normal augmentation. augmentation. POP V is compressible, spontaneous, phasic, POP V is compressible, spontaneous, phasic, competent and demonstrates normal competent and demonstrates normal augmentation. augmentation. T/P Trunk is compressible. T/P Trunk is compressible. PTV is compressible. PTV is compressible. RT PerV is compressible. LT PerV is compressible. Procedure This is a venous duplex using B-mode, color flow and spectral Doppler. Exam performed in department. A preliminary report was called and/or faxed to Dr. Poole. VL/Venous Duplex US - Antwon Extrem Interpretation Summary No evidence for acute deep venous thrombosis bilateral lower extremities with p atent and compressible bilateral great saphenous veins. Ordering Physician: Eleanor Poole Referring Physician: Eleanor Poole Performed By: Dalila Palafox, YANDEL, RVT
== END | disposition home or self-care (01) ==
LOC: CVS 08:28
PROVIDERS: PCP Internal Medicine; Referring Provider Internal Medicine; Visit Provider Internal Medicine
DX: R60.0 Localized edema (principal)
CPT/HCPCS: 93970

== ENCOUNTER → 2024-02-07 | Outpatient (CLI) | payer OTHER, MEDICARE, SELFPAY ==
--- NOTE | 2024-02-07 09:26 | ECHOCS_ITS ---
Reason For Study: HEART DISEASE Procedure This was a 2D Doppler, Color Flow transthoracic echocardiogram. The study was technically difficult. Contrast injection was performed. Exam performed in department. Left Ventricle Normal LV size. The estimated ejection fraction is 70 %. No evidence for diastolic dysfunction. No regional wall motion abnormalities noted. Right Ventricle Normal RV size. Normal systolic function. Atria The left and right atria are normal. No doppler evidence for ASD. Mitral Valve There is no mitral valve stenosis. No mitral valve insufficiency. Tricuspid Valve There is no tricuspid stenosis. Unable to estimate RV systolic pressure due to inadequate jet, pulmonary artery pressure probably normal. Aortic Valve Trisinus/trileaflet aortic valve. There is no aortic stenosis. No aortic valve insufficiency. Pulmonic Valve There is no pulmonic valvular stenosis. No pulmonic valve insufficiency. Great Vessels Normal aortic root. Pericardium/Pleural No pericardial effusion. Medication 22 gauge I.V. with prn adaptor inserted into right arm. Diluted definity 1ml given slow IV push to enhance endocardial definition. MMode/2D Measurements & Calculations LVIDd: 4.4 cm IVSd: 1.3 cm Ao root diam: 3.3 cm LVIDs: 2.2 cm LVPWd: 1.6 cm FS: 50.7 % LAV(MOD-bp): 40.8 ml LVAd ap4: 35.0 cm2 SV(MOD-sp4): 68.1 ml LAV(MOD-sp2): 46.1 ml LVLd ap4: 9.0 cm LAV(MOD-sp4): 35.4 ml EDV(MOD-sp4): 112.8 ml EDV(sp4-el): 115.8 ml LVAs ap4: 19.3 cm2 LVLs ap4: 7.1 cm ESV(MOD-sp4): 44.7 ml ESV(sp4-el): 44.4 ml EF(MOD-sp4): 60.4 % EF(sp4-el): 61.7 % SV(sp4-el): 71.4 ml LA A4 area: 16.3 cm2 LA dimension(2D): 3.9 cm RA A4 area: 17.1 cm2 TAPSE: 2.4 cm Time Measurements MV dec time: 0.23 sec Doppler Measurements & Calculations MV E max leon: 84.4 cm/sec Lat Peak E' Leon: 7.6 cm/sec Med Peak E' Leon: 6.8 cm/sec MV A max leon: 102.9 cm/sec E/E' lat: 11.2 E/E' med: 12.4 MV E/A: 0.82 MV V2 max: 103.6 cm/sec MV dec slope: 367.4 cm/sec2 Ao V2 max: 136.9 cm/sec MV max P.3 mmHg Ao max P.5 mmHg MV V2 mean: 63.4 cm/sec Ao V2 mean: 97.3 cm/sec MV mean P.8 mmHg Ao mean P.3 mmHg MV V2 VTI: 30.6 cm Ao V2 VTI: 33.3 cm AV (velocity ratio): 0.88 LV V1 max: 118.6 cm/sec PA V2 max: 100.4 cm/sec LV V1 max P.6 mmHg PA V2 mean: 84.8 cm/sec LV V1 mean P.4 mmHg LV V1 mean: 86.7 cm/sec LV V1 VTI: 29.4 cm ECHO/Echo Complete W/ Contrast Interpretation Summary Diluted definity 1ml given slow IV push to enhance endocardial definition. The estimated ejection fraction is 70 %. No evidence for diastolic dysfunction. Ordering Physician: Eleanor Poole Referring Physician: Eleanor Poole Performed By: Tram Navarro RCS
== END | disposition home or self-care (01) ==
PROVIDERS: PCP Internal Medicine; Referring Provider Internal Medicine; Visit Provider Internal Medicine
DX: I51.89 Other ill-defined heart diseases (principal)
CPT/HCPCS: 93306; Q9957; A4216; C8929